=== PATIENT | female | born 1975 | race Caucasian/White ===

== ENCOUNTER 2023-10-12 14:07 | Outpatient (RCR) | payer OTHER, SELFPAY | END 2023-11-06 23:59 | disposition home or self-care (01) | LOC: SPT 14:07 | PROVIDERS: Family Provider Internal Medicine Endocrinology, Diabetes & Metabolism; PCP Registered Nurse; Visit Provider Registered Nurse | DX: M54.12 Radiculopathy, cervical region (principal) | CPT/HCPCS: 97110; 97161 ==

== ENCOUNTER 2023-11-12 08:36 | Outpatient (CLI) | payer OTHER, SELFPAY ==
--- NOTE | 2023-11-12 08:45 | MR_ITS ---
WS: [id number] MRI CERVICAL SPINE NONCONTRAST TECHNIQUE: Sagittal T1, T2 and STIR imaging. Axial T2, gradient, and fiesta imaging. CLINICAL INFORMATION: M54.12 - Radiculopathy, cervical region COMPARISON: None. FINDINGS: Straightening with slight reversal of normal cervical lordosis. Disc bulging worse in the mid cervica l spine. Cord signal is normal. C2-C3: Normal. C3-C4: Mild facet arthropathy. Spinal canal and foramen are patent. C4-C5: Mild disc osteophyte ridging. Mild RIGHT and no significant LEFT foraminal narrowing. Mild fac et arthropathy. Spinal canal is patent. C5-C6: Disc osteophyte complex with endplate ridging. Moderate RIGHT and no significant LEFT foramina l narrowing. Mild facet arthropathy. C6-C7: LEFT eccentric disc osteophyte complex. Mild LEFT foraminal narrowing. Spinal canal and RIGHT foramen are patent. C7-T1: Normal. Visualized brain stem structures: Normal. Prevertebral soft tissues: Normal. MR/MR cervical spin wo con* [id number] IMPRESSION: 1. Straightening with slight reversal of normal cervical lordosis. 2. Small disc osteophyte complexes in the mid cervical spine with slight effac ement of the ventral thecal sac. No significant central canal stenosis. 3. Moderate RIGHT C5-C6 bony foraminal narrowing. 4. Mild bony foraminal narrowing RIGHT C4-5 and LEFT C6-7.
== END 2023-11-12 08:37 | disposition home or self-care (01) ==
LOC: RAD 08:37
PROVIDERS: Family Provider Internal Medicine Endocrinology, Diabetes & Metabolism; PCP Registered Nurse; Visit Provider Registered Nurse
DX: M54.12 Radiculopathy, cervical region (principal); M25.78 Osteophyte, vertebrae; M99.61 Osseous and subluxation stenosis of intervertebral foramina of cervical region
CPT/HCPCS: 72141

== ENCOUNTER 2024-11-06 18:18 | Emergency (ER) | payer BC, SELFPAY ==
--- NOTE | 2024-11-06 18:35 | XRR_ITS ---
PROCEDURE INFORMATION: Exam: XR Chest Exam date and time: 11/06/2024 6:41 PM Age: 49 years old Clinical indication: Pain; Other: Back; Additional info: Back pain TECHNIQUE: Imaging protocol: Radiologic exam of the chest. Views: 1 view. COMPARISON: MR cervical spin wo con* [id number] 11/12/2023 9:04 AM FINDINGS: Lungs: Unremarkable. No consolidation. Pleural spaces: Unremarkable. No pleural effusion. No pneumothorax. Heart/Mediastinum: Unremarkable. No cardiomegaly. Bones/joints: Probable calcific tendinopathy of right supraspinatus. Otherwise Unremarkable. Single view. XR/XR chest 1V portable [id number] IMPRESSION: No acute findings.
[2024-11-06 18:41] VITALS: BP 127/85; PULSE 79; RESP 16; TEMP 36.6; O2SAT 97; BMI 25.7
[2024-11-06 19:03] LABS: Glucose Urine UA Negative (Normal); Nitrate Urine Negative (Negative); Specific Gravity, Urine 1.019 (1.005-1.030)
[2024-11-06 19:06] VITALS: BP 164/100; PULSE 81; RESP 16; O2SAT 100
[2024-11-06 19:06] LABS: Add Urine Microscopic? YES
[2024-11-06 19:12] LABS: Hematocrit 44.9 % (36-47); Hemoglobin 15.50 g/dL (11.27-16.99); Mean Corpuscular HGB Conc 34.5 g/dL (30-55); Mean Corpuscular Hemoglobin 28.5 pg (27-33); Mean Corpuscular Volume 82.5 fl (85-98); Nucleated Red Blood Cells % 0 %; Platelet Count 264 10^3/cmm (157-399); Red Blood Count 5.44 10^6/uL (3.85-5.65); White Blood Count 15.92 10^3/uL (3.29-11.43)
[2024-11-06] MEDS: ondansetron 2 mg/ML SDV 2 mL 4 MG IVP (19:14)
[2024-11-06 19:25] LABS: Ketone (Acetest) Serum Negative (Negative)
--- NOTE | 2024-11-06 19:27 | ED_ITS ---
HPI - Female Genitourinary 2 General: Chief complaint: Urogenital-Female Stated complaint: Severe pain in back, N/V, Chills. Diabetic type 1 Time Seen by Provider: 11/06/24 18:39 History of Present Illness: 49-year-old female presents emergency de partment with left flank pain that began today while she was out riding on a [id number] she had urinary tract symptoms for the last couple of days. She had urinary frequency and difficulty starting urine. She told the nurse she has no flank pain but she reported a little bit of left flank pain to me she has some mild blood streaking after she wipes when she urinates but no nicola blood in her urine. Denies any hematochezia melena hematemesis coffee-ground emesis no diarrhea. No specific abdominal pain. No fever. Earlier she had said her blood sugar was dropping however when she checked her Dexcom when I was at the bedside it was 137 Associated symptoms: Deny abdominal pain Related Data Previous Rx's ?Medication ?Instructions ?Recorded insulin aspart U-100 100 unit/mL 25 unit (0.25 mL) SUB CUT TID 90 09/09/21 (3 mL) subcutaneous pen (Novolog days #67.5 mL FlexPen U-100 Insulin aspart) insulin glargine 100 unit/mL (3 34 unit (0.34 mL) SUBC UT DAILY 09/09/21 mL) subcutaneous pen (Lantus days #15 mL Solostar U-100 Insulin) ibuprofen 800 mg tablet 800 mg PO TID PRN pain #60 t abs 02/07/23 hydrocodone 5 mg-acetaminophen 325 1 tab PO Q6H PRN pa in #20 tabs 11/06/24 mg tablet promethazine 25 mg tablet 25 mg PO Q6H PRN nausea and 11/06/24 vomiting #20 tabs tamsulosin 0.4 mg capsule 0.4 mg PO DAILY #10 caps 04/01 ciprofloxacin HCl 500 mg tablet 500 mg PO BID #14 tabs 11/07/24 (Cipro) Allergies Allergy/AdvReac Type Severity Reaction Status Date / Time Sulfa (Sulfonamide Allergy Unknown Verified 09/30/23 08:24 Antibiotics) Review of Systems 2 Const: Denies: fever(s) or chills Card: Denies: chest pain Resp: Denies: dyspnea GI: Denies: abdominal pain : Reports: flank pain (left), urinary frequency and urinary urgency; Denies: dysuria Musc: Denies: neck pain or back pain Skin/Breast: Denies: rash PFSH ED 2 PFSH: Medical History Diabetes type 1, controlled Social History Smoking and tobacco/nicotine status: never used tobacco/nicotine Alcohol intake: never Substance/Drug Use: never Adopted: No Caregiver/support person: No Lives independently: No Household members: spouse and children Marital status: Current occupational status: employed Sexually active: Yes Do you think of yourself as: Straight/Heterosexual Current gender identity: Female Physical Exam 2 Const: GENERAL APPEARANCE: cooperative ORIENTATION/CONSCIOUSNESS: Yes awake, Yes oriented to person, Yes oriented to place and Yes oriented to time HENMT: COMMON NORMALS: normocephalic, atraumatic and hearing grossly normal bilaterally HEAD & SCALP: normocephalic and atraumatic Resp: COMMON NORMALS: normal respiratory effort, No retractions, No use of accessory muscles and clear to auscultation bilaterally AUSCULTATION: clear to auscultation bilaterally Cardio: COMMON NORMALS: regular rate, regular rhythm and No murmurs present (Cardio) RATE: regular rate RHYTHM: regular rhythm GI: COMMON NORMALS: Soft to palpation and No hepatosplenomegaly present A USCULTATION: Yes normoactive bowel sounds PALPATION: Yes Soft to palpation, No Tenderness to palpation present (GI), No Guarding due to palpation present (GI) and Yes No hepatosplenomegaly present Extremity: COMMON NORMALS: normal to inspection, capillary refill normal, no clubbing, cyanosis or edema, no calf tenderness and no pedal edema Neuro: SENSORIUM/ORIENTATION: Yes oriented to person, Yes oriented to place and Yes oriented to time Skin: COMMON NORMALS: no rashes or lesions noted GENERAL SKIN EXAM: no rashes or lesions noted Course 2 Vital Signs: Vital signs: Vital Signs Temperature 97.8 F 11/06/24 18:41 Pulse Rate 79 11/07/24 00:29 Respiratory Rate 16 11/07/24 00:29 Blood Pressure 103/67 11/07/24 00:29 Pulse Oximetry 95 11/07/24 00:29 Oxygen Delivery Me thod Room Air 11/06/24 20:34 MDM - Female Medical Decision Making The CT shows left ureteral lithiasis. White count is elevated, no fever. Patient states her nausea and vomiting are worse than the flank pain at this point. Discharge patient home with medications for nausea and pain control strain urine. Reviewing urine after patient left she did have 6-10 whites we will call in an antibiotic for her as well. Case management make arrangements for her to follow-up with urology. At the time of discharge pain is well- controlled discharged home with pain medications receiving a prescription sent into the pharmacy. Medical Records I reviewed the patient's medical records. Lab Data I reviewed the patient's lab results. 11/06/24 19:04 11/06/24 19:04 Radiology Impressions Chest X-Ray 11/06/24 18:35 IMPRESSION: No acute findings. Abdomen/Pelvis CT 11/06/24 21:34 IMPRESSION: 1. Mild hydroureteronephrosis on the left due to obstructing or partially obstructing calculi in the distal ureter, at least 2, measuring up to 6 mm. 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 2. Nonspecific calcified left breast mass, recommend mammographic evaluation. 3. Aortic atherosclerosis. Laboratory Results WBC 15.92 10^3/uL (3.29-11.43) H 11/06/24 19:04 RBC 5.44 10^6/uL (3.85-5.65) 11/06/24 19:04 Hgb 15.50 g/dL (11.27-16.99) 11/06/24 19:04 Hct 44.9 % (36-47) 11/06/24 19:04 MCV 82.5 fl (85-98) L 11/06/24 19:04 MCH 28.5 pg (27-33) 11/06/24 19:04 MCHC 34.5 g/dL (30-55) 11/06/24 19:04 RDW 13.0 % (12.1-15.1) 11/06/24 19:04 Plt Count 264 10^3/cmm (157-399) 11/06/24 19:04 MPV 9.3 fL (7.4-10.4) 11/06/24 19:04 Neut % (Auto) 84.9 % 11/06/24 19:04 Lymph % (Auto) 8.6 % 11/06/24 19:04 [place] % (Auto) 4.6 % 11/06/24 19:04 Eos % (Auto) 1.0 % 11/06/24 19:04 Baso % (Auto) 0.3 % 11/06/24 19:04 Neut # (Auto) 13.53 10^3/uL (1.8-7.7) H 11/06/24 19:04 Lymph # (Auto) 1.4 10^3/uL (0.8-4.8) 11/06/24 19:04 [place] # (Auto) 0.7 10^3/uL (0.2-0.9) 11/06/24 19:04 Eos # (Auto) 0.2 10^3/uL (0.0-0.8) 11/06/24 19:04 Baso # (Auto) 0.0 10^3/uL (0.0-0.1) 11/06/24 19:04 Nucleated RBC % (auto) 0 % 11/06/24 19:04 Nucleated RBCs # 0.0 /100WBC 11/06/24 19:04 Sodium 142 mmol/L (136-145) 11/06/24 19:04 Potassium 4.3 mmol/L (3.5-5.1) 11/06/24 19:04 Chloride 103 mmol/L (98-107) 11/06/24 19:04 Carbon Dioxide 26 mmol/L (22-29) 11/06/24 19:04 Anion Gap 17.3 (5-19) 11/06/24 19:04 BUN 18 mg/dL (6-20) 11/06/24 19:04 Creatinine 0.8 mg/dL (0.5-0.9) 11/06/24 19:04 GFR Calculation 75.9 mL/min (90-130) L 11/06/24 19:04 Glucose 89 mg/dL (65-115) 11/06/24 19:04 POC Glucose 80 mg/dL (70-110) 11/06/24 18:43 Calculated Osmolality 295 mOsm/kg (285-295) 11/06/24 19:04 Calcium 9.4 mg/dL (8.5-10.5) 11/06/24 19:04 Total Bilirubin 0.5 mg/dL (0.15-1.2) 11/06/24 19:04 AST 17 U/L (0-32) 11/06/24 19:04 ALT 14 U/L (0-33) 11/06/24 19:04 Alkaline Phosphatase 57 U/L (35-105) 11/06/24 19:04 Total Protein 7.4 g/dL (6.6-8.7) 11/06/24 19:04 Albumin 4.5 g/dL (3.5-5.2) 11/06/24 19:04 Globulin 2.9 g/dL (1.3-4.6) 11/06/24 19:04 Urine Color Yellow (Yellow) 11/06/24 06:52 Urine Appearance Clear (CLEAR) 11/06/24 06:52 Urine pH 6.0 (5-7) 11/06/24 06:52 Ur Specific [place] 1.019 (1.005-1.030) 11/06/24 06:52 Urine Protein Trace (Negative) A 11/06/24 06:52 Urine Glucose (UA) Negative (Normal) 11/06/24 06:52 Urine Ketones Trace (Negative) 11/06/24 06:52 Urine Blood 3+ (Negative) A 11/06/24 06:52 Urine Nitrate Negative (Negative) 11/06/24 06:52 Urine Bilirubin Negative (Negative) 11/06/24 06:52 Urine Urobilinogen 1.0 mg/dL (Negative) 11/06/24 06:52 Ur Leukocyte Esterase Trace (Negative) A 11/06/24 06:52 Urine RBC 51-100 /hpf (0-2) H 11/06/24 06:52 Urine WBC 6-10 /hpf (0-5) 11/06/24 06:52 Ur Squamous Epith Cells 0-5 /hpf (0-5) 11/06/24 06:52 Amorphous Sediment Not Reportable 11/06/24 06:52 Urine Bacteria Trace /hpf (NONE) 11/06/24 06:52 Hyaline Casts 1.65 /lpf 11/06/24 06:52 Serum Ketones Negative (Negative) 11/06/24 19:04 All radiology interpretation(s) finalized by discharge Discharge Plan Discharge Patient Disposition: Home Clinical Impression: Left nephrolithiasis, Diabetes type 1, controlled Condition: Stable Prescriptions: New hydrocodone-acetaminophen 5-325 mg tablet 1 tab PO Q6H PRN (Reason: pain) Qty: 20 0RF promethazine 25 mg tablet 25 mg PO Q6H PRN (Reason: nausea and vomiting) Qty: 20 0RF tamsulosin 0.4 mg capsule 0.4 mg PO DAILY Qty: 10 0RF ciprofloxacin HCl [Cipro] 500 mg tablet 500 mg PO BID Qty: 14 0RF No Action insulin aspart U-100 [Novolog FlexPen U-100 Insulin] 100 unit/mL (3 mL) insulin pen 25 unit SUBCUT TID 90 Days Qty: 67.5 6RF Rx Instructions: 1:20 carb ratio. Up to 100 units daily Lantus Solostar U-100 Insulin 100 unit/mL (3 mL) insulin pen 34 unit SUBCUT DAILY 90 Days Qty: 15 6RF Rx Instructions: 340B. please give sufficient quantity for 90 days ibuprofen 800 mg tablet 800 mg PO TID PRN (Reason: pain) Qty: 60 0RF Discharge Orders: Discharge ED (Routine); Ordered 11/06/24 Ordered By: Alexys Ndiaye Referrals: Harrison Tanner MD [Family Provider, Endocrinology] Kyler Benz FNP [Primary Care Provider, Family Practice] Patient Instructions: Kidney Stones (ED), How to Strain Your Urine (ED), Opioid Safety, Pain Management, Patient Portal & Veronica Instructions Activity Restrictions/Additional Instructions: Thank you for choosing [facility] for your healthcare needs today. It is very important that you follow up as instructed or that you return to the Emergency Department should you have concerns or if your condition changes or worsens in any way. Emergency department visits are focused on emergent conditions, in some cases you may require further evaluation on an outpatient basis. You were seen in the emergency room with left flank pain. The CT shows kidney stones in the left ureter. Will discharge you home there is no sign of infection in the urine. You will need to see urology human resources safety manager will make arrangements for this. Given pain and nausea medications to use as needed. Strain your urine to catch the stone. If pain becomes uncontrolled or you develop fever or other changes symptoms return to the nearest emergency room. (Please note that included in your discharge packet is information concerning opioid safety and pain management. This information is given to all patients were discharged from the ER regardless of their discharge diagnosis or the medicines they usually take or are prescribed.) Print Language: Telugu Coding Level of Care Code ED Air Quality Instrument Specialist for Alejandra Donaldson
[2024-11-06 19:39] LABS: Alanine Aminotransferase 14 U/L (0-33); Albumin Level 4.5 g/dL (3.5-5.2); Alkaline Phosphatase 57 U/L (35-105); Anion Gap 17.3 (5-19); Aspartate Amino Transferase 17 U/L (0-32); Blood Urea Nitrogen 18 mg/dL (6-20); Calcium 9.4 mg/dL (8.5-10.5); Carbon Dioxide 26 mmol/L (22-29); Chloride 103 mmol/L (98-107); Creatinine Clr Calc Pharmacy 79.7348; Globulin 2.9 g/dL (1.3-4.6); Glucose 89 mg/dL (65-115); Osmolality Calculated 295 mOsm/kg (285-295); Potassium 4.3 mmol/L (3.5-5.1); Sodium 142 mmol/L (136-145); Total Protein 7.4 g/dL (6.6-8.7)
[2024-11-06 20:34] VITALS: BP 157/95; PULSE 86; RESP 16; O2SAT 100
--- NOTE | 2024-11-06 21:34 | CTR_ITS ---
PROCEDURE INFORMATION: Exam: CT Abdomen And Pelvis Without Contrast Exam date and time: 11/06/2024 9:48 PM Age: 49 years old Clinical indication: Fever and nausea and vomiting; Abdominal pain; Localized; Lower; Prior surgery; Surgery date: 6+ months; Surgery type: Csection; C/O low back/abd pain with fever and n/v. Dexcom in place. ; Additional info: Flank pain TECHNIQUE: Imaging protocol: Computed tomography of the abdomen and pelvis without contrast. Radiation optimization: All CT scans at this facility use at least one of these dose optimization techniques: automated exposure control; mA and/or kV adjustment per patient size (includes targeted exams where dose is matched to clinical indication); or iterative reconstruction. COMPARISON: CR (CHEST, ) 11/06/2024 6:41 PM RADIATION DOSE METRICS: Total DLP (mGy-cm): 529.43 FINDINGS: Liver: Normal. No mass. Gallbladder and biliary ducts: Normal. No calcified stones. No ductal dilation. Pancreas: Normal. No ductal dilation. Spleen: Normal. No splenomegaly. Adrenal glands: Normal. No mass. Kidneys and ureters: Mild hydroureteronephrosis on the left due to obstructing or partially obstructing calculi in the distal ureter, at least 2, measuring up to 6 mm. 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 Stomach and bowel: Unremarkable. No obstruction. No mucosal thickening. Appendix: No evidence of appendicitis. Intraperitoneal space: Unremarkable. No free air. No significant fluid collection. Vasculature: Aortic atherosclerosis. Lymph nodes: Unremarkable. No enlarged lymph nodes. Urinary bladder: Unremarkable as visualized. Reproductive: Unremarkable as visualized. Bones/joints: Unremarkable. No acute fracture. Soft tissues: Nonspecific calcified left breast mass, recommend mammographic evaluation. CT/CT kidney stone [id number] IMPRESSION: 1. Mild hydroureteronephrosis on the left due to obstructing or partially obstructing calculi in the distal ureter, at least 2, measuring up to 6 mm. 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 2. Nonspecific calcified left breast mass, recommend mammographic evaluation. 3. Aortic atherosclerosis.
[2024-11-06] MEDS: morphine 4 mg/mL SDV 1 mL IVP (21:46)
[2024-11-07] MEDS: oxyCODONE-APAP 10-325 mg Tablet 2 TAB PO (00:09)
[2024-11-07] MEDS: HYDROmorphone 0.5 MG/0.5 ML INJ IVP (00:09)
[2024-11-07 00:29] VITALS: BP 103/67; PULSE 79; RESP 16; O2SAT 95
--- NOTE | 2024-11-07 07:49 | DCPLANNER ---
Urology referral sent to [facility]
== END 2024-11-07 00:28 | disposition home or self-care (01) ==
PROVIDERS: Emergency Provider Family Medicine; Family Provider Internal Medicine Endocrinology, Diabetes & Metabolism; PCP Registered Nurse
DX: N20.0 Calculus of kidney (principal); E10.9 Type 1 diabetes mellitus without complications
CPT/HCPCS: 36415; 36416; 71045; 74176; 80053; 81001; 82009; 82962; 85025; 87086; 96374; 96375; 99285; J0780; J1171; J1885; J2270; J2405; J9999; Q0169